=== PATIENT | female | born 1995 | race Caucasian/White ===

== ENCOUNTER 2020-11-18 18:19 | Emergency (ER) | payer MEDICAID ==
[~2020-11-18] VITALS: Ht 157.5 cm; Wt 66.7 kg
[2020-11-18 19:02] LABS: URINE HCG NEGATIVE (NEG)
[2020-11-18 19:05] LABS: CLARITY,URINE CLEAR (Clear); COLOR,URINE YELLOW (Yellow); GLUCOSE, URINE NEGATIVE (Neg); KETONES,URINE NEGATIVE (Neg); LEUKOCYTE ESTERASE ,URINE SMALL (Neg); NITRITES, URINE NEGATIVE (Neg); OCCULT BLOOD,URINE NEGATIVE (Neg); PROTEIN,URINE NEGATIVE (Neg); UROBILINOGEN,URINE 0.2 E.U/dL (0.2-1.0)
[2020-11-18 19:10] LABS: UA COLLECTION TYPE CLN CATCH MIDSTREAM
[2020-11-18 19:11] LABS: AMORPHOUS PHOSPHATES 2+; BACTERIA,URINE FEW /HPF (Neg); RBC,URINE 0 /HPF (0-2); SQUAMOUS EPITHELIAL CELL,UR FEW /LPF (FEW); WBC,URINE 0-4 /HPF (0-4)
--- NOTE | 2020-11-18 20:18 | NUR ---
Ultrasound being performed at this time.
[2020-11-18 20:19] LABS: BASOPHILS % (AUTO) 0.5 % (0-1); EOSINOPHILS # (AUTO) 0.1 X10'3 (0-0.9); EOSINOPHILS % (AUTO) 0.7 % (0-6); HEMATOCRIT 36.1 % (35.0-45.0); HEMOGLOBIN 12.2 g/dl (12.0-16.0); LYMPHOCYTES # (AUTO) 3.1 X10'3 (1.1-4.8); LYMPHOCYTES % (AUTO) 35.5 % (21-51); MEAN CORPUSCULAR HEMOGLOBIN 31.6 PG (27.0-31.0); MEAN CORPUSCULAR HGB CONC 33.9 g/dL (33.0-36.5); MEAN CORPUSCULAR VOLUME 93.2 FL (78-98); MEAN PLATELET VOLUME 9.7 FL (7.4-10.4); MONOCYTES # (AUTO) 0.5 X10'3 (0-0.9); MONOCYTES % (AUTO) 5.8 % (2-12); NEUTROPHILS # (AUTO) 5.1 X10'3 (1.8-7.7); NEUTROPHILS % (AUTO) 57.5 % (42-75); PLATELET COUNT 210 X10'3 (140-440); RED BLOOD COUNT 3.87 X10'6 (4.20-5.60); RED CELL DISTRIBUTION WIDTH 13.8 % (11.5-14.5); WHITE BLOOD COUNT 8.8 X10'3 (4.5-11.0)
[2020-11-18 20:32] LABS: ALANINE AMINOTRANSFERASE 21 U/L (12-78); ALBUMIN/GLOBULIN RATIO 1.3 (1.1-1.5); ALKALINE PHOSPHATASE 57 IU/L (46-116); ANION GAP 8 (8-16); ASPARTATE AMINO TRANSFERASE 12 U/L (10-37); BILIRUBIN,TOTAL 0.1 MG/DL (0.1-1.0); BLOOD UREA NITROGEN 15 MG/DL (7-18); BUN/CREATININE RATIO 27.8 (6.6-38.0); CALCIUM 8.9 MG/DL (8.5-10.1); CHLORIDE 105 MMOL/L (99-107); CREATININE 0.54 MG/DL (0.40-0.90); GLUCOSE 80 MG/DL (70-104); LIPASE 99 U/L (73-393); POTASSIUM 3.4 MMOL/L (3.5-5.1); SODIUM 139 MMOL/L (135-145); TOTAL CARBON DIOXIDE 26.1 MMOL/L (24-32); eGFR > 90 ML/MIN
[2020-11-18 20:57] VITALS: BP 123/78
== END 2020-11-18 20:58 | disposition home or self-care (01) ==
LOC: ER 18:21
DX: R10.9 Unspecified abdominal pain (principal); R10.2 Pelvic and perineal pain; J45.909 Unspecified asthma, uncomplicated; F17.200 Nicotine dependence, unspecified, uncomplicated; Z72.89 Other problems related to lifestyle; Z88.8 Allergy status to other drugs, medicaments and biological substances
CPT/HCPCS: 36415; 76775; 76856; 80053; 81001; 81025; 83690; 85025; 87088; 93976; 99285

== ENCOUNTER 2021-04-10 16:53 | Emergency (ER) | payer MEDICAID ==
[~2021-04-10] VITALS: Ht 157.5 cm; Wt 67.0 kg
[2021-04-10 17:49] VITALS: BP 100/60
[2021-04-10] MEDS ORDERED: AMOX-117 PO (20:05)
[2021-04-10] MEDS ORDERED: PRED20TA PO (20:05)
== END 2021-04-10 21:11 | disposition home or self-care (01) ==
LOC: ER 16:53
DX: U07.1 COVID-19 (principal); J06.9 Acute upper respiratory infection, unspecified; H92.03 Otalgia, bilateral; R09.81 Nasal congestion; R05 Cough; J45.909 Unspecified asthma, uncomplicated; Z72.89 Other problems related to lifestyle; Z88.8 Allergy status to other drugs, medicaments and biological substances; Z79.2 Long term (current) use of antibiotics; Z79.899 Other long term (current) drug therapy
CPT/HCPCS: 87635; 99283; C9803

== ENCOUNTER 2021-10-07 19:12 | Emergency (ER) | payer MEDICAID ==
[~2021-10-07] VITALS: Ht 157.5 cm; Wt 68.2 kg
[2021-10-07 19:18] VITALS: BP 96/36
[2021-10-07] MEDS ORDERED: triamcinolone acetonide 40mg/ml inj IM ONE (20:00)
[2021-10-07] MEDS ORDERED: PRED10TA23 PO (20:02)
[2021-10-07] MEDS ORDERED: HYDR28CR14 TOP (20:02)
[2021-10-08] MEDS ORDERED: HYDR-3686 PO (09:09)
[2021-10-08] MEDS ORDERED: PRED20TA PO (09:09)
[2021-10-08] MEDS ORDERED: BETA15CR4 TOP (09:09)
== END 2021-10-07 20:24 | disposition home or self-care (01) ==
LOC: ER 19:13
DX: L23.7 Allergic contact dermatitis due to plants, except food (principal); J45.909 Unspecified asthma, uncomplicated; Z88.8 Allergy status to other drugs, medicaments and biological substances
CPT/HCPCS: 96372; 99283; J3301

== ENCOUNTER 2021-10-08 08:36 | Emergency (ER) | payer MEDICAID ==
[~2021-10-08] VITALS: Ht 157.5 cm; Wt 68.2 kg
[~2021-10-08 08:36] MED LIST: HYDR28CR14 TOP; PRED10TA23 PO
[2021-10-08 08:57] VITALS: BP 129/78
[2021-10-08] MEDS ORDERED: BETA15CR4 TOP (09:09)
[2021-10-08] MEDS ORDERED: HYDR-3686 PO (09:09)
[2021-10-08] MEDS ORDERED: PRED20TA PO (09:09)
== END 2021-10-08 09:12 | disposition home or self-care (01) ==
LOC: ER 08:36
DX: L23.7 Allergic contact dermatitis due to plants, except food (principal); J45.909 Unspecified asthma, uncomplicated; Z72.89 Other problems related to lifestyle; Z88.8 Allergy status to other drugs, medicaments and biological substances; Z79.899 Other long term (current) drug therapy
CPT/HCPCS: 99283

== ENCOUNTER 2023-08-06 21:12 | Emergency (ER) | payer MEDICAID ==
[~2023-08-06] VITALS: Ht 157.5 cm; Wt 71.4 kg
[~2023-08-06 21:12] MED LIST changes: +BETA15CR4 TOP; -PRED10TA23 PO
[2023-08-06 23:39] VITALS: TEMP 98.4
[2023-08-07] MEDS ORDERED: ACYC-1 PO (07:02)
[2023-08-07] MEDS: acyclovir 200 MG capsule PO SCH ×2 (07:05→11:04)
[2023-08-07 07:16] VITALS: BP 116/78; PULSE 64; RESP 18; O2SAT 98
== END 2023-08-07 07:16 | disposition home or self-care (01) ==
LOC: ER 21:13
DX: A60.04 Herpesviral vulvovaginitis (principal); J45.909 Unspecified asthma, uncomplicated; Z88.8 Allergy status to other drugs, medicaments and biological substances; Z79.899 Other long term (current) drug therapy
CPT/HCPCS: 99283